=== PATIENT | female | born 1980 | race Caucasian/White ===

== ENCOUNTER 2016-06-26 13:56 | Emergency (ER) | payer MEDICAID, OTHER ==
[~2016-06-26] VITALS: Ht 162.6 cm; Wt 107.1 kg
[~2016-06-26 13:56] MED LIST: PRENAT PO; RANI150T9 PO
[2016-06-26 14:02] VITALS: Ht 162.6 cm; Wt 107.1 kg
[2016-06-26] MEDS ORDERED: PRED20TA PO (14:29)
[2016-06-26] MEDS ORDERED: ALBU18HF INHALATION ×2 (14:29→14:31)
--- NOTE | 2016-06-26 14:38 | ERD ---
ER Documentation Chief Complaint Date/Time DATE: 06/26/16 TIME: 14:38 Chief Complaint flu s/sx x 2wks HPI 36-year-old female presents to emergency department with flulike symptoms 2 weeks. Patient reports symptoms include nasal congestion, cough, sore throat and otalgia. Patient reports cough is worsening and keeping her awake at night now. Patient also reports intermittent tactile fever, patient has tried over- the-counter cold and flu medication with little relief of symptoms. Denies history of smoking, asthma, seasonal allergies, patient has just given to her second child. Has a 1-month-old baby at home. She is in the emergency department today with her grandmother who is also going to be seen with similar symptoms. Patient denies chest pain, shortness of breath, dyspnea, back pain, or dizziness. Denies nausea, vomiting, or dysuria. ROS All systems reviewed and are negative except as per history of present illness. Medications Home Meds Active Scripts Albuterol Sulfate* (Ventolin HFA*) 18 Gm Hfa.aer.ad, 2 PUFF INHALATION Q4H Y for COUGH, #1 INHALER Prov:MAYE,CINDY 06/26/16 Prednisone* (Prednisone*) 20 Mg Tab, 40 MG PO DAILY for 4 Days, TAB Prov:MAYE,CINDY 06/26/16 Ranitidine Hcl* (Zantac*) 150 Mg Tablet, 150 MG PO BID Y for EPIGASTRIC PAIN, # 30 TAB Prov:FIDELIA GIBSON 12/12/15 Reported Medications Multivit/Min/Fol Ac/Iron/Pren* ( S*) 1 Tab Tab, 1 TAB PO DAILY, TAB 12/12/15 Allergies Allergies: Coded Allergies: No Known Allergy (Unverified , 12/12/15) PMhx/Soc History of Surgery: Yes ( c section ) Anesthesia Reaction: No Hx Neurological Disorder: No Hx Respiratory Disorders: No Hx Cardiac Disorders: No Hx Psychiatric Problems: No Hx Miscellaneous Medical Probl: No Hx Alcohol Use: No Hx Substance Use: No Hx Tobacco Use: No Physical Exam Vitals Vital Signs Date Time Temp Pulse Resp B/P Pulse Ox O2 Delivery O2 Flow Rate FiO2 06/26/16 14:02 98.2 78 18 157/91 99 Nursing notes reviewed, vital signs stable Physical Exam Const: [] No acute distress Head: Atraumatic Eyes: Normal Conjunctiva, PERRLA, positive EOMI ENT: Tympanic membranes mildly erythemic with positive light reflex and no air fluid level. Nasal mucosa moist, nonedematous, no maxillary sinus tenderness. Pharynx moist, pink, tonsils without exudate, uvula rises and falls with pronation. Neck: Full range of motion..~ No meningismus. No cervical chain nodes Resp: Scattered clearing rhonchi, no rales, or wheezes. Cardio: Regular rate and rhythm, no murmurs Abd: Soft, non tender, non distended. Normal bowel sounds Skin: Back: No midline or flank tenderness Ext: No cyanosis, or edema Neur: Awake and alert Psych: Normal Mood and Affect Procedures/MDM Pleasant 36-year-old female coming in today with 2 weeks symptomatic for upper respiratory infection. Cough, congestion, sore throat, and otalgia. Bacterial infection is not suspected. Exam findings and vital signs do not support otitis media or pneumonia. I feel patient is an excellent candidate for outpatient treatment for bronchitis and is stable for discharge at this time. Patient is prescribed zone and given an albuterol inhaler with strict return to emergency department instructions. Return for fever, worsening of cough, sputum production, shortness of breath, chest pain. I have discussed , examination findings, the treatment plan with the patient and family present prior to discharge. Indications for emergent reevaluation, side effects of medication were also discussed. All questions were answered. Patient verbalizes understanding and agrees with plan of care. Departure Diagnosis: Primary Impression: Bronchitis Condition: Good Patient Instructions: Bronchitis, No Antibiotic (Adult) Additional Instructions: Thank you for for coming to [facility] for your care today. Please ask your nurse or provider if you have questions about your care today and do not leave until all your questions have been answered. Please use any medications given as directed and follow-up with your doctor (or the doctor you were referred to) in the next 2-3 days. If you do not have a primary care doctor you may follow up at the [facility] [place] (listed below). You may also use motrin and tylenol as needed for fever and/or pain unless instructed otherwise by your provider or nurse. Indications for more urgent follow-up have been discussed, but you may return to the Emergency Department at ANY time for any worrisome or worsening symptoms. If you have abdominal pain, please know that no test or exam you received is perfect and you should follow up within 8 hours for continued pain. If you had any imaging studies today, such as an X-Ray or CT Scan, these studies will be reviewed later by a radiologist. You will be called if there are important findings that were not identified today, so make sure the contact information you provided at registration is correct. If you received any narcotic pain control medicine today, such as Vicodin, Morphine or Dilaudid, your coordination and judgment may be affected for a number of hours. Please do not drive or operate heavy machinery, and you may want someone to assist you at home. If you were given a prescription for narcotic medication, be aware that it is very addictive- use sparingly and only if necessary. CINDY VILLAVICENCIO Jun 26, 2016 14:38
== END 2016-06-26 14:46 | disposition home or self-care (01) ==
LOC: E/R 13:56
DX: J20.9 Acute bronchitis, unspecified (principal)
CPT/HCPCS: 99284